=== PATIENT | female | born 1950 | race Caucasian/White ===

== ENCOUNTER → 2017-06-01 | Outpatient (CLI) | payer MEDICARE, OTHER ==
--- NOTE | 2017-06-05 11:19 | MM ---
Reason for exam: screening (asymptomatic). Last mammogram was performed 1 year ago. History: Patient is postmenopausal. Benign left mammotome panel of the left breast, June 06, 2012. Core biopsy of the right breast, 2004. Took estrogen for 3 years. Took progesterone for 3 years. Physical Findings: A clinical breast exam by your physician is recommended on an annual basis and results should be correlated with mammographic findings. MG 3D Screening Mammo W/Cad Bilateral CC and MLO view(s) were taken. Prior study comparison: May 26, 2016, bilateral MG screening mammo w CAD. May 13, 2015, bilateral MG foundation screening mammo. The breast tissue is almost entirely fat. Previous mammotome biopsy in the right breast. ASSESSMENT: Negative, BI-RAD 1 RECOMMENDATION: Routine screening mammogram of both breasts in 1 year.
== END | disposition home or self-care (01) ==
LOC: RADMAMWWP 09:39
PROVIDERS: ATTEND Family Medicine
DX: Z12.31 Encounter for screening mammogram for malignant neoplasm of breast (principal)
CPT/HCPCS: 77063; G0202

== ENCOUNTER → 2018-06-07 | Outpatient (CLI) | payer MEDICARE, OTHER ==
--- NOTE | 2018-06-08 11:46 | MM ---
Reason for exam: screening (asymptomatic). Last mammogram was performed 1 year ago. History: Patient is postmenopausal. Benign left mammotome panel of the left breast, June 06, 2012. Core biopsy of the right breast, 2004. Took estrogen for 3 years. Took progesterone for 3 years. Physical Findings: A clinical breast exam by your physician is recommended on an annual basis and results should be correlated with mammographic findings. MG 3D Screening Mammo W/Cad Bilateral CC and MLO view(s) were taken. Prior study comparison: June 01, 2017, bilateral MG 3d screening mammo w/cad. May 26, 2016, bilateral MG screening mammo w CAD. There are scattered fibroglandular densities. There are benign appearing round, dystrophic, diffuse and grouped calcifications in the left breast. Previous mammotome biopsy in the right breast. There is no discrete abnormality. ASSESSMENT: Benign, BI-RAD 2 RECOMMENDATION: Routine screening mammogram of both breasts in 1 year.
== END | disposition home or self-care (01) ==
LOC: RADMAMWWP 09:35
PROVIDERS: ATTEND Family Medicine
DX: Z12.31 Encounter for screening mammogram for malignant neoplasm of breast (principal)
CPT/HCPCS: 77063; 77067

== ENCOUNTER → 2019-06-18 | Outpatient (CLI) | payer MEDICARE, OTHER ==
--- NOTE | 2019-06-19 10:07 | MM ---
Reason for exam: screening (asymptomatic). Last mammogram was performed 1 year ago. History: Patient is postmenopausal. Benign left mammotome panel of the left breast, June 06, 2012. Core biopsy of the right breast, 2004. Took estrogen for 3 years. Took progesterone for 3 years. Physical Findings: A clinical breast exam by your physician is recommended on an annual basis and results should be correlated with mammographic findings. MG 3D Screening Mammo W/Cad Bilateral CC and MLO view(s) were taken. Prior study comparison: June 07, 2018, bilateral MG 3d screening mammo w/cad. June 01, 2017, bilateral MG 3d screening mammo w/cad. There are scattered fibroglandular densities. There are benign appearing round calcifications in the left breast. Previous mammotome biopsy in the right breast. There is no discrete abnormality. ASSESSMENT: Benign, BI-RAD 2 RECOMMENDATION: Routine screening mammogram of both breasts in 1 year.
== END | disposition home or self-care (01) ==
LOC: RADMAMWWP 12:58
PROVIDERS: ATTEND Family Medicine
DX: Z12.31 Encounter for screening mammogram for malignant neoplasm of breast (principal)
CPT/HCPCS: 77063; 77067

== ENCOUNTER → 2020-08-27 | Outpatient (CLI) | payer MEDICARE, OTHER ==
--- NOTE | 2020-08-28 14:35 | MM ---
Reason for exam: screening (asymptomatic). Last mammogram was performed 1 year and 2 months ago. History: Patient is postmenopausal. Benign left mammotome panel of the left breast, June 06, 2012. Core biopsy of the right breast, 2004. Took estrogen for 3 years. Took progesterone for 3 years. Physical Findings: A clinical breast exam by your physician is recommended on an annual basis and results should be correlated with mammographic findings. MG 3D Screening Mammo W/Cad Bilateral CC and MLO view(s) were taken. Prior study comparison: June 18, 2019, bilateral MG 3d screening mammo w/cad. June 07, 2018, bilateral MG 3d screening mammo w/cad. There are scattered fibroglandular densities. Previous mammotome biopsy in the right breast. No significant changes when compared with prior studies. ASSESSMENT: Benign, BI-RAD 2 RECOMMENDATION: Routine screening mammogram of both breasts in 1 year.
== END | disposition home or self-care (01) ==
LOC: RADMAMWWP 11:00
PROVIDERS: ATTEND Nurse Practitioner Family
DX: Z12.31 Encounter for screening mammogram for malignant neoplasm of breast (principal)
CPT/HCPCS: 77063; 77067

== ENCOUNTER → 2022-01-11 | Outpatient (CLI) | payer MEDICARE, OTHER ==
--- NOTE | 2022-01-12 07:26 | MM ---
Reason for Exam: Screening (asymptomatic). Last mammogram was performed 1 year(s) and 4 month(s) ago. Patient History: Menarche at age 14. First Full-Term at age 21. Postmenopausal. Patient has history of breast feeding. Patient used Estrogen for 3 years. Patient used Progesterone for 3 years. 2004, Core Biopsy on the Right side. 06/06/2012, Benign Core Biopsy on the left side. Risk Values: Lacey 5 year model risk: 1.9%. NCI Lifetime model risk: 5.7%. Prior Study Comparison: 06/07/2018 Bilateral Screening Mammogram, [facility]. 06/18/2019 Bilateral Screening Mammogram, [facility]. 08/27/2020 Bilateral Screening Mammogram, [facility]. Tissue Density: The breast tissue is heterogeneously dense. This may lower the sensitivity of mammography. Findings: Analyzed By CAD. There is no suspicious group of microcalcifications or new suspicious mass in either breast. Overall Assessment: Negative, BI-RAD 1 Management: Screening Mammogram of both breasts in 1 year. A clinical breast exam by your physician is recommended on an annual basis and results should be correlated with mammographic findings. Electronically signed and approved by: David Palm M.D. Radiologis
--- NOTE | 2022-01-13 15:43 | US ---
EXAMINATION TYPE: US arterial LE single level DATE OF EXAM: 01/11/2022 7:45 AM CLINICAL HISTORY: M79.604 PAIN IN RT LEG,M79.605 PAIN IN LT LEG. Doppler Waveforms: Right: Multiphasic Left: Multiphasic Ankle-Brachial Indices: Right: 1.02 Left: 1.04 Toe Brachial Indices: Right: 0.66 Left: 0.62 IMPRESSION: Normal ankle-brachial index bilaterally
== END | disposition home or self-care (01) ==
LOC: RADMAMWWP 06:48
PROVIDERS: ATTEND Family Medicine
DX: Z12.31 Encounter for screening mammogram for malignant neoplasm of breast (principal); Z78.0 Asymptomatic menopausal state
CPT/HCPCS: 77063; 77067; 93922

== ENCOUNTER → 2023-01-12 | Outpatient (CLI) | payer MEDICARE, OTHER ==
--- NOTE | 2023-01-13 08:23 | MR ---
EXAMINATION TYPE: MR lumbar spine wo con DATE OF EXAM: 01/12/2023 COMPARISON: 06/06/2018 HISTORY: Pain in lower back and legs, sciatica, lumbago TECHNIQUE: Multiplanar, multisequence images of the lumbar spine were acquired without IV contrast. Scoliotic curvature convex to the left. T12-L1: Mild disc desiccation. Moderate posterior disc bulge which is new in the interval. There is m ild central stenosis present. No norris disc herniation. Foramina are patent. L1-L2: Normal disc appearance without desiccation. No herniation, protrusion or disc bulging. No ca nal stenosis is present. Foramina are patent bilaterally. L2-L3: Severe disc desiccation noted with subligamentous disc herniation redemonstrated. Overall appe arance is slightly improved. Hypertrophy of the ligamentum flavum and facet joint arthropathy with co ntinued moderate central stenosis. L3-L4: Mild disc desiccation with mild posterior disc bulge. There is mild effacement of the ventral thecal sac with constriction of the thecal sac and borderline stenosis. Foramina are patent bilateral ly. L4-L5: Grade 1 anterolisthesis L4 and L5 has progressed in the interval and measures 7.5 mm versus 4 mm previously. There is severe degenerative change of the facet joints. Hypertrophy of the ligamentum flavum and disc bulging results in severe central stenosis which appears to have progressed since pr ior study. Moderate disc desiccation redemonstrated. Bilateral neural foraminal encroachment left muc h greater than right. Degenerative endplate marrow changes. L5-S1: Normal disc appearance without desiccation. No herniation, protrusion or disc bulging. No ca nal stenosis is present. Foramina are patent bilaterally. Lumbar segments are intact. No paraspinal masses are identified. Conus medullaris has a normal appe arance. IMPRESSION: 1. Multilevel degenerative disc disease. 2. New level of central stenosis at T12-L1. 3. Persistent central stenosis at L2-3, L3-4 and L4-5 as outlined above.
--- NOTE | 2023-01-13 20:18 | MM ---
Reason for Exam: Screening (asymptomatic). Last screening mammogram was performed 12 month(s) ago. Patient History: Menarche at age 14. First Full-Term at age 21. Postmenopausal. Patient has history of breast feeding. Patient used Estrogen for 3 years. Patient used Progesterone for 3 years. 2004, Core Biopsy on the Right side. 06/06/2012, Benign Core Biopsy on the left side. Risk Values: Lacey 5 year model risk: 1.9%. NCI Lifetime model risk: 5.5%. Prior Study Comparison: 05/26/2016 Bilateral Screening Mammogram, [facility]. 06/01/2017 Bilateral Screening Mammogram, [facility]. 06/07/2018 Bilateral Screening Mammogram, [facility]. 06/18/2019 Bilateral Screening Mammogram, [facility]. 08/27/2020 Bilateral Screening Mammogram, [facility]. 01/11/2022 Bilateral MG 3D screening mammo w/cad, [facility]. Tissue Density: There are scattered fibroglandular densities. Findings: Analyzed By CAD. A few punctate calcifications upper outer quadrant left breast adjacent to some benign round calcifications is slightly increased. A benign process is suspected. 6 month follow-up to reassess. Microclip lateral right breast from prior biopsy. Otherwise, no significant change. Overall Assessment: Probably benign, BI-RAD 3 Management: Diagnostic Mammogram of the left breast in 6 months. In order to reassess a few new grouped punctate calcifications upper outer quadrant left breast. Patient should continue monthly self-breast exams. A clinical breast exam by your physician is recommended on an annual basis. This exam should not preclude additional follow-up of suspicious palpable abnormalities. Note on Lacey scores and lifetime risk: 1. A Lacey score greater than 3% is considered moderate risk. If this is the case, consider specialist referral to assess eligibility for a risk reducing agent. 2. If overall lifetime risk for the development of breast cancer is 20% or higher, the patient may qualify for future screening with alternating mammogram and breast MRI. Electronically signed and approved by: Gemma Mojica M.D. Radiologist
== END | disposition home or self-care (01) ==
LOC: RADMRIMAIN 12:45
PROVIDERS: ATTEND Family Medicine
DX: Z12.31 Encounter for screening mammogram for malignant neoplasm of breast (principal); M51.16 Intervertebral disc disorders with radiculopathy, lumbar region; M99.73 Connective tissue and disc stenosis of intervertebral foramina of lumbar region; Z78.0 Asymptomatic menopausal state
CPT/HCPCS: 72148; 77063; 77067

== ENCOUNTER → 2023-03-01 | Outpatient (CLI) | payer MEDICARE, OTHER ==
--- NOTE | 2023-03-04 18:45 | CT ---
EXAMINATION TYPE: CT left knee - [facility] Protocol DATE OF EXAM: 03/01/2023 COMPARISON: None HISTORY: 73-year-old female osteoarthritis. M25.562 M17.12 M25.462 TECHNIQUE: CT of the left knee for surgical planning purposes. Scanning includes the bilateral hips a nd bilateral ankles with coronal and sagittal reconstructions. CT DLP: 844 mGycm Automated exposure control for dose reduction was used. FINDINGS: Mild marginal spurring of the hips. Significant diverticulosis. Pelvic phleboliths. There is some low density fullness in the central uterus. Recommend pelvic ultrasound to exclude abnormal endometrial stripe thickening. There is severe medial compartmental osteoarthrosis. Given the degree of medial sided soft tissue ful lness, suspect a torn and extruded medial meniscus. At least moderate patellofemoral compartment and mild lateral compartmental OA. There is a moderate to large joint effusion. No Heredia's cyst. Generalized soft tissue swelling along the ankle and hindfoot regions. Osteoarthritic change at the m idfoot regions particularly the second and third TMT joints. IMPRESSION: 1. SEVERE MEDIAL COMPARTMENTAL OSTEOARTHROSIS. SUSPECT UNDERLYING TORN AND EXTRUDED MEDIAL MENISCUS. MODERATE TO LARGE JOINT EFFUSION. At LEAST MILD TO MODERATE OA WITHIN THE LATERAL AND PATELLOFEMORAL COMPARTMENTS. 2. INCIDENTAL: SOME LOW DENSITY FULLNESS WITHIN THE CENTRAL ASPECT OF THE UTERUS. RECOMMEND PELVIC U LTRASOUND TO EXCLUDE ANY ABNORMAL ENDOMETRIAL STRIPE THICKENING IN A POSTMENOPAUSAL FEMALE.
== END | disposition home or self-care (01) ==
LOC: RADCTMAIN 14:23
PROVIDERS: ATTEND Orthopaedic Surgery
DX: M17.12 Unilateral primary osteoarthritis, left knee (principal); M25.462 Effusion, left knee

== ENCOUNTER → 2023-03-10 | Outpatient (CLI) | payer MEDICARE, OTHER ==
[2023-03-10 13:51] LABS: INR 0.9 (<1.2)
[2023-03-10 13:59] LABS: Partial Thromboplastin Time 21.5 sec (22.0-30.0)
[2023-03-10 16:52] LABS: ALT 28 U/L (8-44); AST 26 U/L (13-35); Albumin 4.7 d/dL (3.8-4.9); Albumin/Globulin Ratio 2.14 Ratio (1.60-3.17); Alkaline Phosphatase 101 U/L (41-126); Blood Urea Nitrogen 20.4 mg/dL (9.0-27.0); Calcium 9.4 mg/dL (8.7-10.3); Carbon Dioxide 24.2 mmol/L (21.6-31.8); Chloride 98 mmol/L (96-109); Globulin 2.2 d/dL (1.6-3.3); Glucose 243 mg/dL (70-110); Potassium 4.8 mmol/L (3.5-5.5); Sodium 137 mmol/L (135-145); Total Bilirubin 0.7 mg/dL (0.3-1.2); Total Protein 6.9 d/dL (6.2-8.2)
[2023-03-10 17:08] LABS: Appearance,Urine Clear (Clear); Bilirubin,Urine Negative (Negative); Blood,Urine Negative (Negative); Color,Urine Yellow (Yellow); Ketones,Urine Negative (Negative); Nitrite,Urine Positive (Negative); PH, Urine 5.5; Specific Gravity,Urine 1.008 (1.001-1.030); Urobilinogen,Urine 0.2 E.U./DL
[2023-03-10 17:17] LABS: Bacteria,Urine 3+ (None Seen)
[2023-03-11 04:23] LABS: HCT 36.9 % (37.2-46.3); HGB 11.7 d/dL (12.0-15.0); MCHC 31.7 d/dL (32.0-37.0); MCV 91.6 FL (80.0-97.0); Mean Platelet Volume 10.9 FL (9.5-12.2); NRBC Per 100 WBC 0 X 10*3/uL (0.00-0.01); Platelet Count 236 X 10*3/uL (140-440); RBC 4.03 X 10*6/uL (4.10-5.20); RDW 12.3 % (11.5-14.5); WBC 6.69 X 10*3/uL (4.50-10.00)
== END | disposition home or self-care (01) ==
LOC: LABWHC1 12:09
PROVIDERS: ATTEND Orthopaedic Surgery
DX: Z01.818 Encounter for other preprocedural examination (principal); M17.12 Unilateral primary osteoarthritis, left knee; R94.31 Abnormal electrocardiogram [ECG] [EKG]
CPT/HCPCS: 36415; 80053; 81001; 85027; 85610; 85730; 87070; 93005

== ENCOUNTER → 2023-05-19 | Outpatient (CLI) | payer MEDICARE, OTHER ==
[2023-05-19 09:16] LABS: Partial Thromboplastin Time 22.5 sec (22.0-30.0); Prothrombin Time 10.7 sec (10.0-12.5)
[2023-05-19 17:31] LABS: Appearance,Urine Turbid (Clear); Bilirubin,Urine Negative (Negative); Blood,Urine Negative (Negative); Color,Urine Yellow (Yellow); Ketones,Urine Negative (Negative); Nitrite,Urine Positive (Negative); PH, Urine 5.5; Specific Gravity,Urine 1.023 (1.001-1.030)
[2023-05-19 17:32] LABS: ALT 20 U/L (8-44); AST 19 U/L (13-35); Albumin 4.8 d/dL (3.8-4.9); Alkaline Phosphatase 92 U/L (41-126); BUN/Creat Ratio 20.33 Ratio (12.00-20.00); Blood Urea Nitrogen 24.4 mg/dL (9.0-27.0); Calcium 10.2 mg/dL (8.7-10.3); Carbon Dioxide 18.8 mmol/L (21.6-31.8); Chloride 97 mmol/L (96-109); Globulin 2.4 d/dL (1.6-3.3); Glucose 179 mg/dL (70-110); Sodium 137 mmol/L (135-145); Total Bilirubin 0.7 mg/dL (0.3-1.2); Total Protein 7.2 d/dL (6.2-8.2)
[2023-05-19 17:35] LABS: Bacteria,Urine 3+ (None Seen)
[2023-05-20 01:21] LABS: Basophils # (A) 0.04 X 10*3/uL (0.00-0.10); Basophils % (A) 0.6 %; Eosinophils # (A) 0.08 X 10*3/uL (0.04-0.35); Eosinophils % (A) 1.1 %; HCT 38.5 % (37.2-46.3); HGB 12.5 d/dL (12.0-15.0); Lymphocytes # (A) 1.53 X 10*3/uL (0.90-5.00); Lymphocytes % (A) 21.9 %; MCH 29.2 pg (27.0-32.0); MCHC 32.5 d/dL (32.0-37.0); Mean Platelet Volume 11.3 FL (9.5-12.2); Monocytes # (A) 0.54 X 10*3/uL (0.20-1.00); Monocytes % (A) 7.7 %; NRBC Per 100 WBC 0 X 10*3/uL (0.00-0.01); Neutrophils # (A) 4.78 X 10*3/uL (1.80-7.70); Neutrophils % (A) 68.4 %; Platelet Count 251 X 10*3/uL (140-440); RBC 4.28 X 10*6/uL (4.10-5.20); RDW 12.4 % (11.5-14.5); WBC 6.99 X 10*3/uL (4.50-10.00)
== END | disposition home or self-care (01) ==
LOC: LABPAT 07:17
PROVIDERS: ATTEND Orthopaedic Surgery
DX: Z01.812 Encounter for preprocedural laboratory examination (principal); M17.12 Unilateral primary osteoarthritis, left knee
CPT/HCPCS: 80053; 81001; 83036; 85025; 85610; 85730; 87070

== ENCOUNTER 2023-05-31 13:35 | Day surgery (SDC) | payer MEDICARE, OTHER ==
[~2023-05-31 13:35] MED LIST: ACETAMINOPHEN TAB 500 MG TAB PO PRN; DEXAMETHASONE SOD PHOSPHATE 10 MG/ML 1 ML VIAL IV PRN; DOCUSATE 100 MG CAP PO PRN; FAMOTIDINE 20 MG/2 ML VIAL IVP PRN; KETOROLAC 15 MG/ML 1 ML VIAL IVP PRN; LIDOCAINE 1% (10MG/ML) FOR IV START INTRADERMA PRN; ONDANSETRON 4 MG/2 ML VIAL IVP ONE; ONDANSETRON 4 MG/2 ML VIAL IVP PRN; ROPIVACAINE/EPI/CLONIDINE/KET 50 ML SYRINGE MISCELLANE PRN; TRANEXAMIC 1,000 MG/100ML-NACL 1,000 MG in SALINE 1 100ML.BAG IV PRN; TRANEXAMIC 1,000 MG/100ML-NACL 1,000 MG in SALINE 1 100ML.BAG IVPB PRN; fentaNYL (PF) 50 MCG/ML 2 ML AMP IV PRN; oxyCODONE ER 10 MG TAB.ER.12H PO PRN
[2023-05-31] MEDS: LACTATED RINGERS 1,000 ML IV SCH (14:11)
[2023-05-31 14:29] LABS: Glucose,Whole Blood 136 mg/dL (70-110)
[2023-05-31] MEDS ORDERED: fentaNYL (PF) 50 MCG/ML 2 ML AMP IVP ONE (14:40)
[2023-05-31] MEDS ORDERED: MIDAZOLAM 2 MG/2 ML VIAL IVP ONE ×2 (14:40)
--- NOTE | 2023-05-31 15:00 | P.ANPRN ---
Procedure Note - Anesthesia - Nerve Block Performed Left Adductor Canal Single Time Out Performed: Yes Date of Procedure: 05/31/23 Procedure Start Time: 14:34 Procedure Stop Time: 14:40 Location of Patient: PreOp Indication: Requested by Surgeon Sedation Type: Sedate with meaningful contact maintained Preparation: Sterile Prep Position: Supine Catheter: None Needle Types: Pajunk Needle Gauge: 21 Ultrasound used to visualize needle placement: Yes Ultrasound used to observe medication spread: Yes Injectate: Other (see comment) (7,5ml ropiv +7.5 ml NS) Blood Aspirated: No Pain Paresthesia on Injection Noted: No Resistance on Injection: Normal Image Stored and Saved: Yes
--- NOTE | 2023-05-31 15:04 | P.ANPRN ---
Procedure Note - Anesthesia - Nerve Block Performed Left iPack Single Time Out Performed: Yes Date of Procedure: 05/31/23 Procedure Start Time: 14:41 Procedure Stop Time: 14:46 Location of Patient: PreOp Indication: Requested by Surgeon Sedation Type: Sedate with meaningful contact maintained Preparation: Sterile Prep Position: Right Lateral Catheter: None Needle Types: Pajunk Needle Gauge: 21 Ultrasound used to visualize needle placement: Yes Ultrasound used to observe medication spread: Yes Injectate: 0.5% Ropivacaine (see comment for volume) (ropiv 15ml+NS 15ml) Blood Aspirated: No Pain Paresthesia on Injection Noted: No Resistance on Injection: Normal Image Stored and Saved: Yes Events: Uneventful and Well Tolerated
[2023-05-31] MEDS ORDERED: ROCURONIUM 10 MG/ML (5 ML VIAL) IV ONE (15:31)
[2023-05-31] MEDS ORDERED: SODIUM CHLORIDE 0.9% (PF) 10 ML VIAL ONE (15:31)
[2023-05-31] MEDS ORDERED: HYDROmorphone (PF) 1 MG/ML ONE (15:31)
[2023-05-31] MEDS ORDERED: PROPOFOL 10 MG/ML 20 ML VIAL IV ONE (15:31)
[2023-05-31] MEDS ORDERED: MIDAZOLAM 2 MG/2 ML VIAL ONE (15:31)
[2023-05-31] MEDS ORDERED: fentaNYL (PF) 50 MCG/ML 2 ML AMP ONE (15:31)
[2023-05-31] MEDS ORDERED: PHENYLEPHRINE 10 MG/ML 5 ML VIAL ONE (15:31)
[2023-05-31] MEDS ORDERED: TRANEXAMIC 1,000 MG/100ML-NACL PREMIX BAG ONE (15:31)
[2023-05-31] MEDS ORDERED: LIDOCAINE 1% INJ 10MG/ML (20 ML MDV) ONE (15:31)
[2023-05-31] MEDS ORDERED: SUCCINYLCHOLINE CHLORIDE 200 MG/10 ML VIAL IV ONE (15:31)
[2023-05-31] MEDS ORDERED: NEOSTIGMINE 1 MG/ML 10 ML VIAL ONE (15:31)
[2023-05-31] MEDS ORDERED: ROPIVACAINE 5 MG/ML 30 ML VIAL ONE (15:31)
[2023-05-31] MEDS ORDERED: GLYCOPYRROLATE 0.2 MG/ML 2 ML VIAL ONE (15:31)
[2023-05-31] MEDS ORDERED: LACTATED RINGERS 1,000 ML IV ONE ×2 (16:16)
[2023-05-31] MEDS ORDERED: HYDROmorphone 0.5 MG/0.5 ML SYRINGE IVP PRN (17:56)
[2023-05-31] MEDS ORDERED: HYDROcodone/APAP 5-325MG 1 EACH TAB PO PRN (17:56)
[2023-05-31] MEDS ORDERED: MAGNESIUM HYDROXIDE 2,400 MG/30 ML CUP PO PRN (17:56)
[2023-05-31] MEDS ORDERED: ONDANSETRON 4 MG/2 ML VIAL IVP PRN (17:56)
[2023-05-31] MEDS ORDERED: bisacodyL 10 MG SUPP RECTAL PRN (17:56)
[2023-05-31] MEDS ORDERED: hydrOXYzine pamoate 25 MG CAP PO PRN (17:56)
[2023-05-31] MEDS ORDERED: NALOXONE 0.4 MG/ML 1 ML VIAL IV PRN (17:56)
[2023-05-31] MEDS ORDERED: NA PHOS,M-B/NA PHOS,DI-BA 133 ML ENEMA RECTAL PRN (17:56)
--- NOTE | 2023-05-31 18:03 | P.OP ---
Date of Procedure: 05/31/23 Preoperative Diagnosis: 1. Severe left knee osteoarthritis 2. Type 2 diabetes with preoperative hemoglobin A1c level 7.4 3. BMI 32.8 Postoperative Diagnosis: Same Procedure(s) Performed: 1. Left total knee arthroplasty 2. Computer assisted musculoskeletal navigation using CT/MRI images Implants: 1. [employer] CR Femur Size #4 2. [place] [employer] [place] Tibial Base Size #3 3. [employer] CS poly Size #3, 9-mm 4. [place] [employer] all poly patella, Size #32 Anesthesia: BARA, regional Surgeon: Ron Downing Estimated Blood Loss (ml): 100 IV fluids (ml): 1,000 Pathology: none sent Condition: stable Disposition: PACU Indications for Procedure: I met with the patient preoperatively in the office setting and discussed treatment of their symptomatic knee arthritis. They failed a long course of non surgical treatment and elected to proceed with an elective total knee replacement. I discussed the potential risks and complications at length and gave them ample time to ask questions. Risks discussed included: risks from anesthesia, superficial site surgical infection, acute and/or chronic periprosthetic joint infection, delayed wound healing, drainage, wound necrosis, instability, stiffness, stiffness requiring manipulation and/or revision surgery, damage to local blood vessels or nerves, aseptic loosening of the implants, extensor mechanism issues including disruption, patellar maltracking, avascular necrosis etc., continued or worsened knee pain, generalized dissatisfaction with surgical outcome, need for revision surgery, an inability to regain preinjury level of function, DVT, PE, other medical complications, and possibly loss of life or limb. The patient voiced their understanding that while these are the most common complications other less common complications are possible. They provided both their verbal and written consent to go forward with surgery. Operative Findings: Severe tricompartmental osteoarthritis with full-thickness cartilage loss in the medial and patellofemoral compartments and partial thickness cartilage loss in the lateral compartment. There was a large clear effusion. There are multiple intra-articular adhesions throughout the knee mostly in the suprapatellar pouch. Description of Procedure: The patient was identified in preoperative holding and the correct operative extremity was verified and marked with a marker. I reviewed the consent form with the patient at length. All of their questions were answered. The patient was given a block by anesthesia. They were then brought back to the operating room. They were transferred onto the operating room table where a general anesthetic, preoperative antibiotics, and tranexamic acid were administered by anesthesia. A tourniquet was applied to the proximal aspect of the operative extremity. The contralateral extremity was padded under the heel and secured to the operating room table with a nonsterile blue towel and tape. The ipsilateral arm was carefully draped across the patient's chest and secured with a pillow and foam. A post was applied over the lateral aspect of the ipsilateral thigh and a bolster was placed under the ipsilateral foot. I verified that the operative extremity was stable and the knee was flexed to 90. The operative extremity was then placed in a leg rivera, nonsterile drapes were applied, and the extremity was prepped and draped sterilely in the standard sterile fashion. Prior to starting surgery timeout was performed identifying the correct patient, operative extremity, and procedure. The leg was then elevated, exsanguinated with an Esmarch bandage, and the tourniquet was inflated. An anterior midline incision was made sharply with a scalpel. Once I had dissected deep to the superficial fascial layer medial and lateral flaps were elevated. A medial parapatellar arthrotomy was created. Upon opening the knee joint there were diffuse arthritic changes in all 3 compartments. The anterior horn of the medial meniscus were sharply released and a medial release was performed around the posterior medial corner of the knee to facilitate retractor placement. The fat pad was excised with electrocautery. The patella was found to be severely arthritic and a provisional cut was made with a sagittal saw to facilitate mobilization of the extensor mechanism during the procedure. Rem nants of the ACL and PCL were then excised from the notch. 4 mm pins were then placed within the incision in the medial distal femur and proximal tibia. Arrays were applied to the pins and I verified they were completely tightened. The knee was then registered with the [employer] robot and manipulations in implant position were made to balance the knee and opitmize implant position. Using the [employer] robotic saw all cuts were made in accordance with our plan. After all bony fragments had been removed the cuts were verified with the planar probe. The tibia was then subluxed forward and sized. The knee was brought into flexion and a lamina crate repairer was placed to allow removal of the meniscal remnants both medially and laterally as well as posterior osteophytes. Local anesthetic was then infiltrated around the joint capsule. Trial implants were then placed within the knee. Range of motion and collateral ligament tension was then evaluated. Adjustments in implant size and position were then made accordingly. Once the knee was felt to be appropriately balanced the Tenzin pins were removed. The patella was then recut, sized, and punched. A trial patellar button was then placed. With the trial components in place, the patella tracked midline. The femur was then drilled and the trial component removed. The trial tibial component was then appropriately rotated, pinned, and prepared for the keel. All trial components were then removed from the knee. The knee was thoroughly irrigated with pulsatile lavage. Cement was prepared via vacuum mixing in a bowl on the back table. I then hand pressurized cement into the femur and tibia and placed the implants beginning with the tibial base tray and poly liner, femoral component, and finally the patellar button. All extruded cement was removed including from the pin sites. Once the cement had hardened the knee was evaluated one final time with the final polyethylene liner in place. The knee had full extension and flexion and felt stable to varus and valgus stress throughout the arc of motion. The tourniquet was released and with the tourniquet down the patella tracked midline. All bleeders were controlled with electrocautery. The knee was then soaked for 3 minutes with a dilute Betadine soak. The knee was thoroughly irrigated using 3 L of sterile saline and pulsatile lavage. A deep drain was placed. The extensor mechanism was then reapproximated using pop off Vicryl sutures followed by a running barbed suture. The knee was then closed in layers with a 0 strata fix for the deep fascial layer, 2-0 strata fix for the superficial subcutaneous layer and Monocryl and Steri-Strips for the skin. A sterile dressing and drain sponge were applied. I verified that all instrument, sponge, and sharp counts were correct. The patient was then transferred off the operating room table, extubated, and brought to recovery having tolerated the procedure well. PLAN: The patient can weight-bear as tolerated on the operative extremity. DVT prophylaxis with aspirin 81 mg twice a day based on preoperative risk stratification. Follow-up in the office in 2 weeks for wound check and x-rays of the knee including an AP and lateral.
--- NOTE | 2023-05-31 18:42 | XR ---
EXAMINATION TYPE: XR knee limited LT DATE OF EXAM: 05/31/2023 COMPARISON: NONE HISTORY: 73-year-old female evaluation for postoperative abnormality and alignment TECHNIQUE: 2 views FINDINGS: Surgical drain is in place. Scattered soft tissue air related to recent operation. Intra-articular ai r also present. Images show placement of left total knee arthroplasty. Both distal femoral proximal t ibial components of the prosthesis are well seated without periprosthetic fracture. Alignment is hoa sly anatomic. Possible 4 mm loose body in the suprapatellar pouch. IMPRESSION: Uncomplicated postoperative appearance left total knee arthroplasty. Possible small 4 mm loose body i n the suprapatellar pouch.
[2023-05-31] MEDS ORDERED: DEXTROSE 50% SYRINGE 50 ML IVP PRN ×2 (19:17)
[2023-05-31] MEDS: SODIUM CHLORIDE 0.9% 1,000 ML IV SCH ×2 (20:19→23:39)
[2023-05-31] MEDS: ASPIRIN 81 MG PO SCH (20:22)
[2023-05-31] MEDS: HYDROcodone/APAP 10-325MG 1 EACH TAB PO PRN (20:24)
[2023-05-31] MEDS ORDERED: SENNOSIDES-DOCUSATE SODIUM 1 EACH TAB PO SCH (21:00)
--- NOTE | 2023-05-31 22:09 | P.CONS ---
History of Present Illness - Reason for Consult Consult date: 05/31/23 Medical management Requesting physician: Ron Downing - Chief Complaint Left knee surgery - History of Present Illness Pleasant 73-year-old patient, follows with Dr. Cabrera. Patient is undergoing left total knee arthroplasty. Some pain is present. Very slight nausea. No chest pain or short of breath. Laying in bed. Did tolerate a light diet. Chronic stable medical conditions include diabetes, hypothyroid, hyperlipidemia Review of systems: GEN.: None EYES: None HEENT: None NECK: None RESPIRATORY: None CARDIOVASCULAR: None GASTROINTESTINAL: None GENITOURINARY: None MUSCULOSKELETAL: Joint pains LYMPHATICS: None HEMATOLOGICAL: None PSYCHIATRY: None NEUROLOGICAL: None Past medical history to include: Hypothyroid, diabetes, hyperlipidemia, osteoporosis, anxiety depression Social history: Smoked one pack a week for about 31 years stopped about 20 years ago. . Physical examination: VITAL SIGNS: 98.2, 85, 16, 137/60, 97% on 3 L GENERAL: BMI 32.8, laying but awake not in distress Average built, sitting up, comfortable. EYES: Pupils equal. Conjunctiva normal. HEENT: External appearance of nose and ears normal, oral cavity grossly normal. NECK: JVD not raised; masses not palpable. HEART: First and second heart sounds are normal; no edema. LUNGS: Respiratory rate normal; clear to auscultation. ABDOMEN: Soft, nontender, liver spleen not palpable, no masses palpable. PSYCH: Alert and oriented x3; mood and affect normal. MUSCULOSKELETAL:No Clubbing/cyanosis;muscles-grossly intact. Dressing over the left knee. Evidence of OA NEUROLOGICAL: Cranial nerves grossly intact; no facial asymmetry, power and sensation grossly intact. LYMPHATICS: No lymph nodes palpable in the axilla and neck INVESTIGATIONS, reviewed in the clinical context: 05/19/2023: White count 6.9 hemoglobin 12.5 platelets 251 potassium 5 BUN 24.2 creatinine 1.2 Assessment and plan: -Left total knee arthroplasty Aspirin for DVT prophylaxis. IV cefazolin for infection prophylaxis. Pain control -BMI 32.8. Obesity. Outpatient weight loss control. -Primary osteoarthritis Medications as needed -Diabetes mellitus type 2 on oral hypoglycemic Glipizide. Follow Accu-Cheks with sliding scale. -Depression and anxiety not otherwise specified Celexa 20 mg a day -Essential hypertension t Zestril 5 mg a day -Hypothyroid Synthroid 25 g a day Care was discussed with patient. Questions answered. Thank you Dr. Downing Past Medical History Past Medical History: Diabetes Mellitus, Hyperlipidemia, Osteoarthritis (OA), Syncope History of Any Multi-Drug Resistant Organisms: None Reported Past Surgical History: Cholecystectomy, Orthopedic Surgery Additional Past Surgical History / Comment(s): carpal tunnel, rt knee arthroscopy, Past Anesthesia/Blood Transfusion Reactions: No Reported Reaction Past Psychological History: Anxiety, Depression Smoking Status: Former smoker Past Alcohol Use History: Rare Additional Past Alcohol Use History / Comment(s): quit 20yrs approx Past Drug Use History: None Reported - Past Family History Father Sister(s) Family Medical History: Cancer Additional Family Medical History / Comment(s): skin Medications and Allergies Home Medications Medication Instructions Recorded Confirmed Type Citalopram Hydrobromide 20 mg PO DAILY 03/12/16 05/31/23 History [Citalopram HBr] Cinnamon(Unk) 1 tab PO DAILY 05/26/23 05/31/23 History Ibuprofen [Motrin] 800 mg PO Q6HR PRN 05/26/23 05/31/23 History Levothyroxine Sodium [Synthroid] 75 mcg PO DAILY 05/26/23 05/31/23 History Linagliptin [Tradjenta] 5 mg PO DAILY 05/26/23 05/31/23 History Vit D(Unk) 5,000 units PO DAILY 05/26/23 05/31/23 History glipiZIDE 10 mg PO DAILY 05/26/23 05/31/23 History lisinopriL [Zestril] 5 mg PO DAILY 05/26/23 05/31/23 History Allergies Allergy/AdvReac Type Severity Reaction Status Date / Time celecoxib [From Celebrex] Allergy Rash/Hives Verified 05/31/23 13:56 ciprofloxacin [From Cipro] Allergy Rash/Hives Verified 05/31/23 13:56 ciprofloxacin HCl Allergy Rash/Hives Verified 05/31/23 13:56 [From Cipro] codeine Allergy Unknown Verified 05/31/23 13:56 levofloxacin [From Levaquin] Allergy Unknown Verified 05/31/23 13:56 Physical Exam Vitals: Vital Signs Temp Pulse Resp BP Pulse Ox 05/31/23 20:00 98.2 F 85 16 137/68 97 05/31/23 18:55 67 139/63 97 05/31/23 18:40 68 16 152/71 95 05/31/23 18:25 80 150/70 98 05/31/23 18:10 83 146/69 96 05/31/23 17:56 93 145/68 96 05/31/23 14:53 69 16 134/62 99 05/31/23 13:47 97.4 F L 79 16 146/72 98 Intake and Output 05/31/23 05/31/23 05/31/23 06:59 14:59 22:59 Intake Total 300 1450 Output Total 100 Balance 300 1350 Intake: IV 300 1450 Output: Estimated Blood Loss 100 Other: Weight 89.358 kg 89.358 kg Results Labs: Abnormal Lab Results - Last 24 Hours (Table) 05/31/23 Range/Units 14:27 POC Glucose (mg/dL) 136 H (70-110) mg/dL
[2023-06-01] MEDS: HYDROcodone/APAP 10-325MG 1 EACH TAB PO PRN ×2 (01:54→09:20)
[2023-06-01] MEDS: INSULIN ASPART (NovoLOG) 100 UNIT/ML VIAL SQ SCH ×3 (06:22→11:51)
[2023-06-01] MEDS ORDERED: LEVOTHYROXINE 75 MCG TAB PO SCH (06:30)
--- NOTE | 2023-06-01 07:50 | P.DS ---
Providers Date of admission: 05/31/2023 Attending physician: Ron Downing Consults: 05/31/23 17:56 Consult Physician Routine Consulting Provider: Justus Polanco Consult Reason/Comments: post op medical management, Diabetes management Do you want consulting provider notified?: Yes Primary care physician: [facility] Course: The patient is very pleasant 73-year-old female who was admitted under my care on 05/31/2023. She underwent an uncomplicated total knee replacement and was transferred to the orthopedic floor following surgery. She did well postoperatively. She was transitioned from IV to oral pain medications. She was seen by internal medicine. Her drain was pulled on postoperative day #1. She worked with therapy. She was ultimately cleared for discharge home. Plan - Discharge Summary Discharge Rx Participant: No New Discharge Prescriptions: New Omeprazole 40 mg PO DAILY #30 cap Docusate [Colace] 100 mg PO BID #28 capsule HYDROcodone/APAP 5-325MG [Iona 5-325] 1 - 2 tab PO Q6HR PRN #32 tab PRN Reason: Pain Aspirin 81 mg PO BID #60 tab Diclofenac Sodium [Voltaren] 75 mg PO BID #60 tab No Action Citalopram Hydrobromide [Citalopram HBr] 20 mg PO DAILY Ibuprofen [Motrin] 800 mg PO Q6HR PRN PRN Reason: Pain lisinopriL [Zestril] 5 mg PO DAILY Linagliptin [Tradjenta] 5 mg PO DAILY glipiZIDE 10 mg PO DAILY Vit D(Unk) 5,000 units PO DAILY Levothyroxine Sodium [Synthroid] 75 mcg PO DAILY Cinnamon(Unk) 1 tab PO DAILY Discharge Medication List Citalopram Hydrobromide [Citalopram HBr] 20 mg PO DAILY 03/12/16 [History] Cinnamon(Unk) 1 tab PO DAILY 05/26/23 [History] Ibuprofen [Motrin] 800 mg PO Q6HR PRN 05/26/23 [History] Levothyroxine Sodium [Synthroid] 75 mcg PO DAILY 05/26/23 [History] Linagliptin [Tradjenta] 5 mg PO DAILY 05/26/23 [History] Vit D(Unk) 5,000 units PO DAILY 05/26/23 [History] glipiZIDE 10 mg PO DAILY 05/26/23 [History] lisinopriL [Zestril] 5 mg PO DAILY 05/26/23 [History] Aspirin 81 mg PO BID #60 tab 06/01/23 [Rx] Diclofenac Sodium [Voltaren] 75 mg PO BID #60 tab 06/01/23 [Rx] Docusate [Colace] 100 mg PO BID #28 capsule 06/01/23 [Rx] HYDROcodone/APAP 5-325MG [Iona 5-325] 1 - 2 tab PO Q6HR PRN #32 tab 06/01/23 [Rx] Omeprazole 40 mg PO DAILY #30 cap 06/01/23 [Rx] Follow up Appointment(s)/Referral(s): Ron Downing MD [Medical Doctor] - 2 Weeks Activity/Diet/Wound Care/Special Instructions: 1. Weight bearing as tolerated on your operative leg. Use a walker to ambulate. 2. Leave surgical dressing in place. If it becomes saturated with blood, call the office. 3. It is ok to get your dressing wet in the shower, but don't submerge in water or soak (no hot-tubs or baths) 4. Take pain medications as prescribed. While taking Iona for pain, take Colace. 5. Take aspirin 81 mg twice a day to help prevent blood clots. 6. Please call the office with questions or concerns [phone]. 7. Follow-up in the office 2 weeks after surgery. Discharge Disposition: HOME WITH HOME HEALTH SERVICES
[2023-06-01 08:54] VITALS: BP 109/62; PULSE 68; RESP 19; TEMP 98.4
[2023-06-01] MEDS ORDERED: lisinopriL 5 MG TAB PO SCH (09:00)
[2023-06-01] MEDS ORDERED: LINAGLIPTIN 5 MG TABLET PO SCH (09:00)
[2023-06-01] MEDS ORDERED: CITALOPRAM HYDROBROMIDE 20 MG TAB PO SCH (09:00)
[2023-06-01] MEDS: ASPIRIN 81 MG PO SCH (09:20)
[2023-06-01 11:18] LABS: Glucose,Whole Blood 196 mg/dL (70-110)
[2023-06-01 11:50] LABS: Basophils # (A) 0.02 X 10*3/uL (0.00-0.10); Basophils % (A) 0.2 %; Eosinophils # (A) 0 X 10*3/uL (0.04-0.35); Eosinophils % (A) 0 %; HCT 30.8 % (37.2-46.3); HGB 9.9 g/dL (12.0-15.0); Lymphocytes # (A) 1.06 X 10*3/uL (0.90-5.00); Lymphocytes % (A) 9.4 %; MCH 29.2 pg (27.0-32.0); MCHC 32.1 g/dL (32.0-37.0); MCV 90.9 FL (80.0-97.0); Mean Platelet Volume 10.7 FL (9.5-12.2); Monocytes # (A) 0.82 X 10*3/uL (0.20-1.00); Monocytes % (A) 7.3 %; NRBC Per 100 WBC 0 X 10*3/uL (0.00-0.01); Neutrophils # (A) 9.28 X 10*3/uL (1.80-7.70); Neutrophils % (A) 82.3 %; Platelet Count 218 X 10*3/uL (140-440); RBC 3.39 X 10*6/uL (4.10-5.20); RDW 12.5 % (11.5-14.5); WBC 11.27 X 10*3/uL (4.50-10.00)
[2023-06-01] MEDS: LACTATED RINGERS 1,000 ML IV SCH (12:29)
[2023-06-01] MEDS: SODIUM CHLORIDE 0.9% 1,000 ML IV SCH (12:30)
--- NOTE | 2023-06-01 18:57 | P.PN ---
Progress Note - Text Progress Note Date: 06/01/23 - Chief Complaint Left knee surgery - History of Present Illness Pleasant 73-year-old patient, follows with Dr. Cabrera. Patient is undergoing left total knee arthroplasty. Some pain is present. Very slight nausea. No chest pain or short of breath. Laying in bed. Did tolerate a light diet. Chronic stable medical conditions include diabetes, hypothyroid, hyperlipidemia June 01: Pain better. Did ambulate. No nausea vomiting. Did tolerate some diet. Questions answered. Past medical history to include: Hypothyroid, diabetes, hyperlipidemia, osteoporosis, anxiety depression Social history: Smoked one pack a week for about 31 years stopped about 20 years ago. . Physical examination: VITAL SIGNS: 98.4, 68, 19, 109/62, 94% room air GENERAL: Comfortable. EYES: Pupils equal. Conjunctiva normal. HEENT: External appearance of nose and ears normal, oral cavity grossly normal. NECK: JVD not raised; masses not palpable. HEART: First and second heart sounds are normal; no edema. LUNGS: Respiratory rate normal; clear to auscultation. ABDOMEN: Soft, nontender, liver spleen not palpable, no masses palpable. PSYCH: Alert and oriented x3; mood and affect normal. MUSCULOSKELETAL:No Clubbing/cyanosis;muscles-grossly intact. Dressing over the left knee. Evidence of OA INVESTIGATIONS, reviewed in the clinical context: June 01: White count 11.2 hemoglobin 9.9 platelets 218 05/19/2023: White count 6.9 hemoglobin 12.5 platelets 251 potassium 5 BUN 24.2 creatinine 1.2 Assessment and plan: -Left total knee arthroplasty Aspirin for DVT prophylaxis. IV cefazolin for infection prophylaxis. Pain control -BMI 32.8. Obesity. Outpatient weight loss control. -Primary osteoarthritis Medications as needed -Acute postprocedure blood loss anemia as expected from surgery Ferrous sulfate 325 mg twice a day -Diabetes mellitus type 2 on oral hypoglycemic Glipizide. Follow Accu-Cheks with sliding scale. -Depression and anxiety not otherwise specified Celexa 20 mg a day -Essential hypertension t Zestril 5 mg a day [Patient to recheck her blood pressure every day. Resume Zestril) systolic blood pressure above 130.] -Hypothyroid Synthroid 25 g a day discussed with patient. Questions answered. Follow-up with PCP Thank you Dr. Downing
== END 2023-06-01 13:09 | disposition home health service (06) ==
LOC: OR 13:35 → 4SSUR 17:56 → OR 06-01 13:09
PROVIDERS: ATTEND Orthopaedic Surgery
DX: M17.12 Unilateral primary osteoarthritis, left knee (principal); E07.9 Disorder of thyroid, unspecified; K75.9 Inflammatory liver disease, unspecified; F32.A Depression, unspecified; E11.9 Type 2 diabetes mellitus without complications; Z88.5 Allergy status to narcotic agent; Z88.1 Allergy status to other antibiotic agents; Z88.6 Allergy status to analgesic agent; Z88.2 Allergy status to sulfonamides; Z90.49 Acquired absence of other specified parts of digestive tract; Z96.651 Presence of right artificial knee joint; Z98.890 Other specified postprocedural states; Z79.84 Long term (current) use of oral hypoglycemic drugs; Z79.890 Hormone replacement therapy; Z79.899 Other long term (current) drug therapy
CPT/HCPCS: 0055T; 27447; 64447; 64999; 85025

== ENCOUNTER → 2023-07-20 | Outpatient (CLI) | payer MEDICARE, OTHER ==
--- NOTE | 2023-07-20 11:37 | MM ---
Reason for Exam: Follow-up at short interval from prior study. Last screening mammogram was performed 6 month(s) ago. Patient History: Menarche at age 14. First Full-Term at age 21. Postmenopausal. Patient has history of breast feeding. Patient used Estrogen for 3 years. Patient used Progesterone for 3 years. 2004, Core Biopsy on the Right side. 06/06/2012, Benign Core Biopsy on the left side. Risk Values: Lacey 5 year model risk: 1.9%. NCI Lifetime model risk: 5.2%. Prior Study Comparison: 08/27/2020 Bilateral Screening Mammogram, [facility]. 01/11/2022 Bilateral MG 3D screening mammo w/cad, [facility]. 01/12/2023 Bilateral MG 3D screening mammo w/cad, [facility]. Tissue Density: Left: There are scattered fibroglandular densities. Findings: Analyzed By CAD. Punctate calcifications upper outer quadrant left breast remain unchanged for 6 months. Ongoing short interval follow-up recommended. Overall Assessment: Probably benign, BI-RAD 3 Management: Diagnostic Mammogram of both breasts in 6 months. Total one-year follow-up left breast and annual exam of the right breast. Results were given to the patient verbally at the time of exam. Patient should continue monthly self-breast exams. A clinical breast exam by your physician is recommended on an annual basis. This exam should not preclude additional follow-up of suspicious palpable abnormalities. Note on Lacey scores and lifetime risk: 1. A Lacey score greater than 3% is considered moderate risk. If this is the case, consider specialist referral to assess eligibility for a risk reducing agent. 2. If overall lifetime risk for the development of breast cancer is 20% or higher, the patient may qualify for future screening with alternating mammogram and breast MRI. Electronically signed and approved by: Gemma Mojica M.D. Radiologist
== END | disposition home or self-care (01) ==
LOC: RADMAMWWP 10:58
PROVIDERS: ATTEND Family Medicine
DX: R92.322 Mammographic fibroglandular density, left breast (principal); R92.1 Mammographic calcification found on diagnostic imaging of breast; Z78.0 Asymptomatic menopausal state
CPT/HCPCS: 77061; 77065

== ENCOUNTER → 2024-01-31 | Outpatient (CLI) | payer MEDICARE, OTHER ==
--- NOTE | 2024-01-31 10:20 | MM ---
Reason for Exam: Follow-up at short interval from prior study. Last mammogram was performed 1 year(s) and 1 month(s) ago. Patient History: Menarche at age 14. First Full-Term at age 21. Postmenopausal. Patient has history of breast feeding. Patient used Estrogen for 3 years. Patient used Progesterone for 3 years. 2004, Core Biopsy on the Right side. 06/06/2012, Benign Core Biopsy on the left side. Risk Values: Lacey 5 year model risk: 1.9%. NCI Lifetime model risk: 5.0%. Prior Study Comparison: 01/11/2022 Bilateral MG 3D screening mammo w/cad, [facility]. 01/12/2023 Bilateral MG 3D screening mammo w/cad, [facility]. 07/20/2023 Left MG 3D diag mammo w/cad , [facility]. Tissue Density: There are scattered areas of fibroglandular density. Findings: Analyzed By CAD. The pattern is symmetrical. Some coarse calcifications are in the upper outer aspect left breast. Benign-appearing calcifications are present bilaterally. Core marker is on the right. No significant interval change is evident. No suspicious groups of microcalcifications, spiculated or lobular masses, architectural distortion or other secondary signs of malignancy are mammographically apparent. Overall Assessment: Benign, BI-RAD 2 Management: Screening Mammogram of both breasts in 1 year. A negative mammogram report should not preclude additional follow up of suspicious palpable abnormalities. Patient should continue monthly self breast exam. A clinical breast exam by your physician is recommended on an annual basis and results should be correlated with mammographic findings. Note on Lacey scores and lifetime risk: 1. A Lacey score greater than 3% is considered moderate risk. If this is the case, consider specialist referral to assess eligibility for a risk reducing agent. 2. If overall lifetime risk for the development of breast cancer is 20% or higher, the patient may qualify for future screening with alternating mammogram and breast MRI. Electronically signed and approved by: Atul Kovacs D.O. Radiologis
== END | disposition home or self-care (01) ==
LOC: RADMAMWWP 09:22
PROVIDERS: ATTEND Family Medicine
DX: R92.323 Mammographic fibroglandular density, bilateral breasts (principal); R92.8 Other abnormal and inconclusive findings on diagnostic imaging of breast; Z78.0 Asymptomatic menopausal state
CPT/HCPCS: 77062; 77066